=== PATIENT | female | born 1955 | race Asian ===

== ENCOUNTER 2022-07-18 08:23 | Day surgery (SDC) | payer MEDICARE, OTHER ==
[~2022-07-18] VITALS: Ht 157.5 cm; Wt 49.9 kg
[2022-07-18] MEDS ORDERED: LIDOCAINE 2% 100 MG/5 ML UJET TP ONE (09:40)
[2022-07-18] MEDS ORDERED: fentaNYL citrate 0.05 MG/ML VIAL ONE (09:40)
[2022-07-18] MEDS ORDERED: fentaNYL citrate 0.05 MG/ML VIAL IVP ONE (10:36)
== END 2022-07-18 10:57 | disposition home or self-care (01) ==
LOC: MDS 08:23 → MMU 08:23 → MDS 10:57
PROVIDERS: ATTEND Internal Medicine Gastroenterology
DX: Z12.11 Encounter for screening for malignant neoplasm of colon (principal); K64.9 Unspecified hemorrhoids; I10 Essential (primary) hypertension; E11.9 Type 2 diabetes mellitus without complications; Z20.822 Contact with and (suspected) exposure to COVID-19; Z79.899 Other long term (current) drug therapy
CPT/HCPCS: 87426; G0121; J3010